=== PATIENT | female | born 1960 | race African-American/Black ===

== ENCOUNTER 2022-07-19 13:36 | Emergency (ER) | payer MEDICAID, MEDICARE ==
[~2022-07-19] VITALS: Ht 160 cm; Wt 129.0 kg
[2022-07-19 14:39] VITALS: BP 142/121
[2022-07-19] MEDS ORDERED: ACET-2708 MT (17:26)
== END 2022-07-19 17:44 | disposition home or self-care (01) ==
LOC: ER 13:36
DX: M79.674 Pain in right toe(s) (principal); Z88.2 Allergy status to sulfonamides
CPT/HCPCS: 73620; 99283

== ENCOUNTER 2023-09-25 14:14 | Emergency (ER) | payer BC, OTHER ==
[~2023-09-25] VITALS: Ht 162.6 cm; Wt 120.0 kg
[~2023-09-25 14:14] MED LIST: ACET-2708 MT
[2023-09-25 14:25] VITALS: O2SAT 98
[2023-09-25 15:55] LABS: CLARITY URINE SL HAZY (CLEAR); COLOR URINE YELLOW (YELLOW); PH URINE 5.5 (4.5-8.0); PROTEIN URINE NEGATIVE (NEGATIVE); SPECIFIC GRAVITY URINE 1.015 (1.005-1.030)
[2023-09-25 15:56] LABS: GLUCOSE URINE NEGATIVE (NEGATIVE); KETONES URINE NEGATIVE (NEGATIVE); LEUKOCYTE ESTERASE URINE NEGATIVE (NEGATIVE); NITRITE URINE POSITIVE (NEGATIVE); OCCULT BLOOD URINE NEGATIVE (NEGATIVE); UROBILINOGEN URINE 0.2 E.U./dL (0.2-1.0)
[2023-09-25 16:09] LABS: BASOPHILS % 0.4 % (0.0-2.0); DIFFERENTIAL COMMENT 0; EOSINOPHILS % 0.5 % (0.0-5.0); HEMATOCRIT. 41.6 % (36.0-48.0); HEMOGLOBIN. 14.2 g/dL (12.0-16.0); LYMPHOCYTES % 19.1 % (20.0-50.0); MEAN CORPUSCULAR HEMOGLOBIN 25.4 pg (28.0-32.0); MEAN CORPUSCULAR VOLUME 74.7 fL (81.0-99.0); MEAN PLATELET VOLUME 9.7 fl (7.4-10.4); MONOCYTES % 5.7 % (2.0-8.0); NEUTROPHILS % 74.3 % (40.0-76.0); PLATELET 304 x1000/uL (130-400); RED BLOOD CELL COUNT 5.57 mill/uL (4.2-5.4); RED CELL DISTRIBUTION WIDTH 15.6 % (11.6-14.6); WHITE BLOOD COUNT 13.6 x1000/uL (4.5-11.0)
[2023-09-25 16:19] LABS: SQUAMOUS EPITHELIAL CELL URINE 1+ /lpf (RARE/1+)
[2023-09-25 16:20] LABS: ALANINE AMINOTRANSFERASE < 7 IU/L (10-49); ALBUMIN 4.4 g/dL (3.2-4.8); ASPARTATE AMINOTRANSFERASE 12 IU/L (<34); BILIRUBIN TOTAL 0.5 mg/dL (0.1-1.0); CALCIUM 9.6 mg/dL (8.7-10.4); CARBON DIOXIDE 34 mEq/L (21-32); CHLORIDE 102 mEq/L (98-107); CREATININE 0.7 mg/dL (0.6-1.0); GLUCOSE 107 mg/dL (70-105); POTASSIUM 4.4 mEq/L (3.5-5.1); PROTEIN TOTAL 7.4 g/dL (6.0-8.3); SODIUM 141 mEq/L (136-145); UREA NITROGEN BLOOD 7 mg/dL (9-23)
[2023-09-25 16:20] LABS: BACTERIA URINE 4+; RBC URINE 0-2 /hpf (0-2); WBC URINE 0-2 /hpf (0-2); YEAST URINE NONE SEEN
[2023-09-25] MEDS ORDERED: CYCL7.5T25 MT (16:55)
[2023-09-25] MEDS ORDERED: CEPH500C2 MT (16:55)
[2023-09-25] MEDS ORDERED: IBUP-2029 MT (16:55)
[2023-09-25] MEDS ORDERED: KETOROLAC 60MG/2ML VIAL IM ONE (17:00)
[2023-09-25 18:37] VITALS: BP 194/72
[2023-09-25 18:39] VITALS: PULSE 93; RESP 18; TEMP 98.9
== END 2023-09-25 19:17 | disposition home or self-care (01) ==
LOC: ER 14:14
DX: M54.9 Dorsalgia, unspecified (principal); N39.0 Urinary tract infection, site not specified; J45.909 Unspecified asthma, uncomplicated; I10 Essential (primary) hypertension
CPT/HCPCS: 99284; 80053; 81003; 85025; 36415; 96372; J1885

== ENCOUNTER 2025-05-25 20:34 | Emergency (ER) | payer BC, MEDICAID ==
[~2025-05-25] VITALS: Ht 160 cm; Wt 126.8 kg
[~2025-05-25 20:34] MED LIST changes: +CYCL7.5T25 MT; +LIP40 PO; +LJ2 PO; +OXYC-100 MT
[2025-05-25 20:45] VITALS: O2SAT 100
[2025-05-25] MEDS: TETRACAINE 0.5% OPHTH DROPS 4ML RIGHTEYE ONE (22:00)
[2025-05-25] MEDS: FLUORESCEIN SODIUM 1MG/STRIP RIGHTEYE ONE (22:00)
[2025-05-25 22:27] LABS: BASOPHILS % 0.4 % (0.0-2.0); EOSINOPHILS % 1.0 % (0.0-5.0); HEMATOCRIT. 39.5 % (36.0-48.0); HEMOGLOBIN. 13.4 g/dL (12.0-16.0); LYMPHOCYTES % 20.2 % (20.0-50.0); MEAN PLATELET VOLUME 9.4 fl (7.4-10.4); MONOCYTES % 6.9 % (2.0-8.0); NEUTROPHILS % 71.5 % (40.0-76.0); PLATELET 291 x1000/uL (130-400); RED BLOOD CELL COUNT 5.18 mill/uL (4.2-5.4); RED CELL DISTRIBUTION WIDTH 15.5 % (11.6-14.6)
[2025-05-25 22:44] LABS: CREATININE 0.8 mg/dL (0.6-1.0); UREA NITROGEN BLOOD 12 mg/dL (9-23)
[2025-05-25 22:46] LABS: ASPARTATE AMINOTRANSFERASE 11 IU/L (<34); BILIRUBIN DIRECT 0.1 mg/dL (<=3.0); BILIRUBIN TOTAL 0.5 mg/dL (0.1-1.0); PROTEIN TOTAL 7.6 g/dL (6.0-8.3)
[2025-05-26] MEDS ORDERED: NAPR-681 MT (00:49)
[2025-05-26] MEDS ORDERED: OMEP20CA14 MT (00:49)
[2025-05-26 01:26] VITALS: BP 130/69; PULSE 70; RESP 16; TEMP 36.9; O2SAT 96
== END 2025-05-26 01:26 | disposition home or self-care (01) ==
LOC: ER 20:34
DX: R51.9 Headache, unspecified (principal); H57.11 Ocular pain, right eye; M76.62 Achilles tendinitis, left leg; J45.909 Unspecified asthma, uncomplicated; I10 Essential (primary) hypertension; Z90.721 Acquired absence of ovaries, unilateral; Z88.2 Allergy status to sulfonamides
CPT/HCPCS: 36415; 73610; 80048; 80076; 85025; 99284

== ENCOUNTER 2025-10-21 16:16 | Emergency (ER) | payer BC ==
[~2025-10-21] VITALS: Ht 160 cm; Wt 124.0 kg
[~2025-10-21 16:16] MED LIST changes: +NAPR-681 MT; +OMEP20CA14 MT
[2025-10-21 16:18] VITALS: O2SAT 98
[2025-10-21 16:32] VITALS: BP 191/86; PULSE 99; RESP 18; TEMP 37; O2SAT 99
[2025-10-21 19:24] LABS: BASOPHILS % 0.6 % (0.0-2.0); EOSINOPHILS % 0.8 % (0.0-5.0); HEMATOCRIT. 40.8 % (36.0-48.0); HEMOGLOBIN. 13.7 g/dL (12.0-16.0); LYMPHOCYTES % 19.8 % (20.0-50.0); MEAN PLATELET VOLUME 9.2 fl (7.4-10.4); MONOCYTES % 5.4 % (2.0-8.0); NEUTROPHILS % 73.4 % (40.0-76.0); PLATELET 288 x1000/uL (130-400); RED BLOOD CELL COUNT 5.34 mill/uL (4.2-5.4); RED CELL DISTRIBUTION WIDTH 15.3 % (11.6-14.6)
[2025-10-21 19:37] LABS: CREATININE 0.7 mg/dL (0.6-1.0); UREA NITROGEN BLOOD 7 mg/dL (9-23)
[2025-10-21] MEDS ORDERED: IPRATROPIUM/ALBUTEROL 0.5-3(2.5)MG/3ML NEB HHN ONE (20:00)
[2025-10-21] MEDS ORDERED: ALBU18HF2 IH (21:48)
== END 2025-10-22 01:00 | disposition home or self-care (01) ==
LOC: ER 16:16
DX: J06.9 Acute upper respiratory infection, unspecified (principal); B97.89 Other viral agents as the cause of diseases classified elsewhere; J45.909 Unspecified asthma, uncomplicated; I10 Essential (primary) hypertension; Z79.899 Other long term (current) drug therapy; Z88.2 Allergy status to sulfonamides
CPT/HCPCS: 36415; 71045; 80048; 85025; 93005; 99285